=== PATIENT | female | born 1995 | race Caucasian/White ===

== ENCOUNTER 2018-02-05 18:16 | Emergency (ER) | payer BC, OTHER ==
[2018-02-05 18:20] VITALS: BP 128/83
--- NOTE | 2018-02-05 18:24 | EDPHY ---
H & P Stated Complaint: ST 2 days Time Seen by Provider: 02/05/18 18:23 HPI/ROS: HPI: This is a 22-year-old female who presents with Chief Complaint: Sore throat x2 days Location: Throat Quality: Sore Duration: 2 days Signs and Symptoms: no fever, no nausea, no vomiting, no diarrhea, no urinary symptoms, no chest pain, no shortness of breath, no wheezing, no cough, + sore throat, no neck stiffness, no joint pain, + swollen glands, no ear pain, no rash , + hoarse voice Timing: Acute Severity: [id number] Context: Patient is a student at [employer] presents with complaints of sore throat x2 days. She complains of hoarseness and swollen glands. Denies any fever, neck stiffness, cough, headache, body aches. IUD in place does not have regular menses. 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 Still able to drink liquids and eat soft foods. She has not tried any [id number] pain medications or throat spray. Modifying Factors: None Comment: ROS: see HPI Constitutional: + fever, no chills, no weight loss Eyes: No blurred vision Respiratory: No shortness of breath, no cough Cardiovascular: No chest pain, no palpitations Gastrointestinal: No nausea, no vomiting, no diarrhea, no hematemesis, no blood in stool Genitourinary: No dysuria, no blood in urine Extremities: No myalgias, no edema Neurologic: No weakness, no numbness Skin: No rashes, no petechiae Hematologic: No bruising, no bleeding MEDICAL/SURGICAL/SOCIAL HISTORY: Medical history: Depression. Surgical history: Denies Social history: Family history noncontributory. CONSTITUTIONAL: Extremely well-appearing polite and cooperative young adult white female awake and alert, no obvious distress HEENT: Atraumatic and normocephalic, PERRL, EOMI. Nares patent; no rhinorrhea; no nasal mucosal edema. Tympanic membranes clear. Oropharynx clear, tonsils 2 + with no erythema; no exudate; uvula midline and moist pink mucosa. Airway patent. Mild anterior cervical lymphadenopathy. No meningismus. Cardiovascular: Normal S1/S2, regular rate, regular rhythm, without murmur rub or gallop. PULMONARY/CHEST: Symmetrical and nontender. Clear to auscultation bilaterally. Good air movement. No accessory muscle usage. ABDOMEN: Soft, nondistended, nontender, no rebound, no guarding, no peritoneal signs, no masses or organomegaly. No CVAT. EXTREMITIES: 2/2 pulses, strength 5/5, no deformities, no clubbing, no cyanosis or edema. NEUROLOGICAL: no focal neuro deficits. GCS 15. SKIN: Warm and dry, no erythema. no rash. Good capillary refill. Source: Patient Exam Limitations: No limitations - Personal History LMP (Females 10-55): IUD In Place Current Tetanus/Diphtheria Vaccine: Yes Current Tetanus Diphtheria and Acellular Pertussis (TDAP): Yes Tetanus Vaccine Date: < 10 years - Medical/Surgical History Hx Asthma: No Hx Chronic Respiratory Disease: No Hx Diabetes: No Hx Cardiac Disease: No Hx Renal Disease: No Hx Cirrhosis: No Hx Alcoholism: No Hx HIV/AIDS: No Hx Splenectomy or Spleen Trauma: No Other PMH: none - Social History Smoking Status: Former smoker Constitutional: Initial Vital Signs Temperature (C) 36.8 C 02/05/18 18:18 Heart Rate 97 02/05/18 18:18 Respiratory Rate 20 02/05/18 18:18 Blood Pressure 128/83 H 02/05/18 18:18 O2 Sat (%) 94 02/05/18 18:18 O2 Delivery Mode Room Air Allergies/Adverse Reactions: No Known Allergies Allergy (Verified 02/05/18 18:18) Home Medications: Medication Instructions Recorded Amoxicillin Trihydrate [Amoxil] 500 mg PO TID 10 Days cap 02/05/18 Lexapro 02/05/18 Medical Decision Making ED Course/Re-evaluation: Vital signs show no systemic signs. Strep test ordered. Given Decadron 10 mg and 15 mL viscous lidocaine. No signs of tonsillar abscess/airway compromise/Ellis's angina Modified Centor Score= 4 1. Age Range: 15-44 years =1 2. Exudate or swelling of tonsils: Yes 3. Tender/swollen anterior cervical lymph nodes: Yes 4. Temp greater than 30 degree C: no 5. Cough: Absent=1 Rapid strep negative; sent for throat culture; Will treat with antibiotics secondary to Centor Score recommendations. Amoxicillin 500 mg TID x 10 days given. This patient was seen under the supervision of my secondary supervising physician. I evaluated care for this patient independently. Differential Diagnosis: Differential diagnosis includes but is not limited to upper respiratory infection, strep pharyngitis, viral pharyngitis, tonsillar abscess, infectious mononucleosis. - Data Points Laboratory Results: 02/05/18 02/05/18 Unknown 18:20 Group A Strep Screen NEGATIVE (NEGATIVE) Group A Strep DNA Pending Departure - Departure Disposition: Home, Routine, Self-Care Clinical Impression: Acute streptococcal tonsillitis Qualifiers: Streptococcal tonsillitis recurrence: non-recurrent Qualified Code(s): J03.00 - Acute streptococcal tonsillitis, unspecified Condition: Good Instructions: Strep Throat (ED) Additional Instructions: Consume a minimum of 8-10 glasses of water or electrolyte fluid replacement drinks that include Gatorade, Powerade, Pedialyte. Eat a bland diet for the next 48 hours and then slowly advance as tolerated. Take Tylenol 650 mg every 4 hours and/or Ibuprofen 600 mg every 8 hours with food as needed for pain. Return to the ER immediately if you cannot swallow, have drooling, fevers, neck stiffness, cannot open your jaw, or any other symptoms that concern you. Referrals: NONE *PRIMARY CARE P,. [Primary Care Provider] - As per Instructions PCP Not In,Dictionary [Medical Doctor] - As per Instructions Prescriptions: Amoxicillin Trihydrate [Amoxil] 500 mg PO TID 10 Days cap
[2018-02-05] MEDS ORDERED: DEXAMETHASONE 4 MG TAB PO ONE (18:30)
[2018-02-05] MEDS ORDERED: LIDOCAINE 2% VISCOUS 15 ML UDCUP PO ONE (18:30)
[2018-02-05] MEDS ORDERED: AMOXICILLIN 250 MG PREPACK#4 BTL TAKEHOME ONE (18:54)
== END 2018-02-05 18:58 | disposition home or self-care (01) ==
DX: J03.00 Acute streptococcal tonsillitis, unspecified (principal); Z87.891 Personal history of nicotine dependence